=== PATIENT | female | born 1945 | race Caucasian/White ===

== ENCOUNTER 2018-09-07 08:48 | Outpatient (CLI) | payer OTHER | END 2018-09-07 13:00 | disposition home or self-care (01) | LOC: TOM 08:48 | DX: K63.5 Polyp of colon (principal); Z79.01 Long term (current) use of anticoagulants; R19.5 Other fecal abnormalities ==

== ENCOUNTER → 2020-09-16 13:05 | Outpatient (CLI) | payer OTHER | END | disposition home or self-care (01) | LOC: LAB 13:05 | PROVIDERS: ATTEND Internal Medicine | DX: Z79.01 Long term (current) use of anticoagulants (principal); E11.9 Type 2 diabetes mellitus without complications ==

== ENCOUNTER 2021-02-25 09:54 | Outpatient (CLI) | payer OTHER | END 2021-02-25 10:00 | disposition home or self-care (01) | LOC: TOM 09:54 | PROVIDERS: ATTEND Internal Medicine Gastroenterology | DX: R19.5 Other fecal abnormalities (principal); K57.90 Diverticulosis of intestine, part unspecified, without perforation or abscess without bleeding ==

== ENCOUNTER 2022-08-13 07:35 | Outpatient (CLI) | payer OTHER | END 2022-08-13 07:47 | disposition home or self-care (01) | LOC: TOM 07:35 | PROVIDERS: ATTEND Internal Medicine Gastroenterology | DX: R19.5 Other fecal abnormalities (principal); Z79.01 Long term (current) use of anticoagulants ==